=== PATIENT | female | born 1950 ===

== ENCOUNTER 2017-11-19 07:15 | Outpatient (CLI) | payer OTHER | END 2017-11-19 07:18 | disposition home or self-care (01) | LOC: SONOGRAMA 07:15 | DX: E04.2 Nontoxic multinodular goiter (principal) ==

== ENCOUNTER 2021-12-19 09:07 | Outpatient (CLI) | payer OTHER | END 2021-12-19 09:09 | disposition home or self-care (01) | LOC: SONOGRAMA 09:07 | PROVIDERS: ATTEND Pathology Anatomic Pathology & Clinical Pathology | DX: E04.2 Nontoxic multinodular goiter (principal) ==